=== PATIENT | female | born 1975 | race Asian ===

== ENCOUNTER 2016-09-04 08:23 | Day surgery (SDC) | payer OTHER ==
[2016-09-02 13:28] VITALS: BMI 20.1
[2016-09-04] MEDS ORDERED: KETOROLAC TROMETHAMINE 30 MG/1 ML VIAL IVPUSH PRN (13:08)
[2016-09-04] MEDS ORDERED: ONDANSETRON 4 MG/2 ML VIAL IVPB PRN (13:08)
[2016-09-04] MEDS ORDERED: DEXTROSE 5%-0.45% SALINE 1,000 ML IV SCH (13:15)
[2016-09-04] MEDS ORDERED: MIDAZOLAM HCL 2 MG/2 ML SINGLE DOSE VIAL ONE ×2 (13:19→13:26)
[2016-09-04] MEDS ORDERED: LIDOCAINE HCL 1%, 10 MG/ML (20ML VIAL) ONE (13:26)
[2016-09-04] MEDS ORDERED: DEXAMETHASONE SOD PHOSPHATE 4 MG/1 ML VIAL ONE (13:27)
[2016-09-04] MEDS ORDERED: ceFAZolin SODIUM 1 GM VIAL ONE (13:27)
[2016-09-04] MEDS ORDERED: LIDOCAINE HCL 2% (50ML VIAL) INF ONE (13:36)
[2016-09-04 16:57] VITALS: BP 110/62
[2016-09-04 17:19] VITALS: PULSE 71; TEMP 97.8
--- NOTE | 2016-09-05 10:18 | OP ---
DATE OF OPERATION: 09/04/2016 PREOPERATIVE DIAGNOSIS: Right breast ductal carcinoma in situ. POSTOPERATIVE DIAGNOSIS: Right breast ductal carcinoma in situ. PROCEDURE: Right breast wide excision with mammographic needle localization. ANESTHESIA: General laryngeal mask airway anesthesia. PRIMARY SURGEON: Bella Gomez MD DIRECTOR DRUG: CHRISTIANE Cifuentes COMPLICATIONS: None. Briefly, the patient is a 40-year-old premenopausal female of [place] descent. She has no family history of breast or ovarian cancer. The patient felt a slight density towards the periareolar right breast upper outer quadrant and underwent the mammography and ultrasound on July 23, 2016 showing a small 6-mm x 3-mm x 7-mm density in the right breast 10 o'clock region. An ultrasound-guided core biopsy performed on August 04, 2016 showed an intermediate grade DCIS, which was ER/[place] positive. She was seen in consultation and was sent for an MRI performed on August 25, 2016 showing no multifocal or contralateral disease. She underwent genetic testing and turned out to be negative for genetic panel testing but did have an VUS in the MAO and NBN genes. 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 The patient was brought in for the procedure on September 04, 2016. She underwent mammographic localization of the clip in question. DESCRIPTION OF PROCEDURE: She was then brought to the holding area. In the holding area, site verification was made, and informed consent was obtained was obtained. She was brought into the operating room and laid on the OR table in the supine position. Venodynes were placed on the lower extremities. She received a gram of Ancef prior to incision. The right breast was thoroughly prepped and draped in the usual fashion with the wire prepped in the field. No sentinel node biopsy was performed given the intraductal nature of this cancer. She underwent general laryngeal mask airway anesthesia. Then 1% lidocaine was given in a curvilinear fashion towards the periareolar border of the right breast. Incision was made on the right breast periareolar border in the upper outer quadrant. Dissection was undertaken around the needle localization, and the breast tissue was completely removed from around the wire with the wire in the middle of the specimen. The specimen was oriented with a long ladder short superior suture, and specimen radiographs showed removal of the clip in the middle of the specimen. Hemostasis was achieved. Separate margins were then taken on the superior, inferior, medial, lateral, deep, and anterior aspects with suture making the biopsy cavity side, and all margins were sent separately to Pathology. Hemostasis was achieved. A partial tissue transfer closure was then accomplished with about a 3-cm x 3-cm area of breast tissue brought into wound, and the breast tissue was reapproximated using 2-0 plain suture. The skin was closed using interrupted 3-0 deep dermal Vicryl suture and a running 4-0 subcuticular Biosyn suture. Mastisol and Steri-Strips were applied over the wound. A compressive dressing placed over this. Laryngeal mask airway tube was removed at the end of the case, and she was brought to the post anesthesia care unit in stable condition where she will be recovered and discharged home the same day once discharge criteria are met. All sponge and needle counts were correct at the end of the case. She will follow up in the office in 1 week for a formal wound pathology check. Estimated blood loss was minimal. BELLA GOMEZ M.D. [id number]
--- NOTE | 2016-09-08 14:41 | PATH ---
Surgical Pathology Report Patient Name: USHA SIMONS [facility]. Rec. #: [id number] /Age/Gender: 1975 (Age: 40) / F Account: [id number] Location: [facility] AMBULATORY Taken: 09/04/2016 Received: 09/04/2016 Reported: 09/08/2016 Physicians: Cam Gomez M.D. Specimen(s) Received A: RIGHT BREAST WIDE EXCISION B: RIGHT BREAST MEDIAL MARGIN C: RIGHT BREAST LATERAL MARGIN D: RIGHT BREAST DEEP MARGIN E: RIGHT BREAST ANTERIOR MARGIN F: RIGHT BREAST SUPERIOR MARGIN G: RIGHT BREAST INFERIOR MARGIN Clinical History DCIS Final Diagnosis A. RIGHT BREAST, WIDE EXCISION WITH WIRE LOCALIZATION: DUCTAL CARCINOMA IN SITU (DCIS), INTERMEDIATE NUCLEAR GRADE, CRIBRIFORM PATTERN WITH FOCAL AREA OF CENTRAL NECROSIS. DCIS INVOLVES AN INTRADUCTAL PAPILLOMA AND EXTENDS INTO SURROUNDING BREAST TISSUE. DCIS MEASURES UP TO 1.4 CM MEASURED ON THE SLIDE, AND IS PRESENT IN 5 OF 7 SUBMITTED BLOCKS. DCIS IS LESS THAN 1 MM FROM THE SUPERIOR AND LATERAL ASPECTS OF THE SPECIMEN AND 1 MM FROM THE INFERIOR AND DEEP ASPECTS OF THE SPECIMEN (SEE SPECIMENS B-G FOR FINAL MARGINS). CHANGES CONSISTENT WITH PRIOR BIOPSY SITE PRESENT. Immunohistochemical stains for SMM-HC on block A4 performed and interpreted at [facility] shows preservation of the myoepithelial cell layer, consistent with DCIS. B. RIGHT BREAST, MEDIAL MARGIN, EXCISION: BENIGN BREAST TISSUE. C. RIGHT BREAST, LATERAL MARGIN, EXCISION: BENIGN BREAST TISSUE. D. RIGHT BREAST, DEEP MARGIN, EXCISION: BENIGN FIBROFATTY TISSUE. E. RIGHT BREAST, ANTERIOR MARGIN, EXCISION: BENIGN BREAST TISSUE. F. RIGHT BREAST, SUPERIOR MARGIN, EXCISION: DUCTAL CARCINOMA IN SITU (DCIS), INTERMEDIATE NUCLEAR GRADE, CRIBRIFORM PATTERN. DCIS IS LESS THAN 1 MM FROM THE FINAL MARGIN. G. RIGHT BREAST, INFERIOR MARGIN, EXCISION: BENIGN BREAST TISSUE. Comment: Also see prior Slide Review [id number]. Comments DCIS of Breast: Surgical Pathology Cancer Case Summary Based on AJCC/UICC TNM, 7th edition Procedure _X__ Excision with image-guided localization Specimen Laterality _X__ Right Estimated size (extent) of DCIS (greatest dimension using gross and microscopic evaluation): at least 14 mm and: Number of blocks with DCIS: 5 Number of blocks examined: 7 Nuclear Grade _X__ Grade II (intermediate) Necrosis _X__ Present, central (expansive "comedo" necrosis) Microcalcifications _X__ Not identified Margins _X__ Margin(s) close to (< 1 mm) DCIS: SUPERIOR Pathologic Staging (pTNM) Primary Tumor (pT) _X__ pTis (DCIS): Ductal carcinoma in situ Biomarker Studies Results of ER and MS studies performed on block "A4" at [facility] are as follows: ER (clone [id number] mouse monoclonal antibody by [employer]): ~80% nuclear staining with moderate intensity (Positive). MS (clone16 mouse monoclonal antibody by [employer]) : ~80% nuclear staining with moderate intensity (Positive). Positive and negative controls (internal if applicable) show appropriate results. Formalin fixation and cold ischemic times are within current ASCO/CAP recommendations for ER, MS and Her2 testing. Electronically Signed Devin Acosta M.D. Gross Description A. Received in formalin, labeled "right breast wide excision," is a 3.6 x 1.8 x 1.7 cm. beckett-yellow, irregular, portion of fibroadipose tissue. There is a needle localization wire separately received within the same container which appears to have detached from the specimen. There is a short suture marking the superior aspect and a long suture marking the lateral aspect, per the surgeon. There is no skin or nipple present. The specimen is inked as follows: superior and lateral blue; inferior green; medial yellow; anterior red; deep black. The specimen is serially sectioned from lateral to medial. Sectioning reveals a 1.0 x 0.7 x 0.7 cm beckett, firm lesion at 0.3 cm from the inferior margin, 0.4 cm from the anterior margin and 0.4 cm from the deep margin. The remaining breast parenchyma displays abundant dense, white, focally firm fibrous tissue. The specimen is entirely and sequentially submitted in 7 cassettes with the lateral margin in cassette 1, the medial margin in cassette 7 and the lesion in cassettes 2-4. Time to formalin fixation: 5 minutes Total formalin fixation time: Approximately 28 hours. B. Received in formalin labeled "right breast medial margin," is a 1.0 x 0.6 x 0.4 cm irregular portion of fibroadipose tissue with a suture marking the biopsy cavity side, per the surgeon. The new margin is inked green and the specimen is serially sectioned. The specimen is entirely submitted in one cassette. C. Received in formalin labeled "right breast lateral margin," is a 1.5 x 0.9 x 0.5 cm irregular portion of fibroadipose tissue with a suture marking the biopsy cavity side, per the surgeon. The new margin is inked green and the specimen is serially sectioned. The specimen is entirely submitted in 2 cassettes. D. Received in formalin labeled "right breast deep margin," is a 1.1 x 0.7 x 0.2 cm irregular portion of fibroadipose tissue with a suture marking the biopsy cavity side, per the surgeon. The new margin is inked green and the specimen is serially sectioned. The specimen is entirely submitted in one cassette. E. Received in formalin labeled "right breast anterior margin," is a 1.3 x 1.2 x 0.5 cm irregular portion of fibroadipose tissue with a suture marking the biopsy cavity side, per the surgeon. The new margin is inked green and the specimen is serially sectioned. The specimen is entirely submitted in 2 cassettes. F. Received in formalin labeled "right breast superior margin," is a 1.4 x 1.0 x 0.5 cm irregular portion of fibroadipose tissue with a suture marking the biopsy cavity side, per the surgeon. The new margin is inked green and the specimen is serially sectioned. The specimen is entirely submitted in one cassette. G. Received in formalin labeled "right breast inferior margin," is a 1.4 x 0.9 x 0.3 cm irregular portion of fibroadipose tissue with a suture marking the biopsy cavity side, per the surgeon. The new margin is inked green and the specimen is serially sectioned. The specimen is entirely submitted in one cassette. 09/05/2016 saudi09/05/2016
== END 2016-09-04 15:30 | disposition home or self-care (01) ==
LOC: FASU 08:23
PROVIDERS: ATTEND Surgery Surgical Oncology
PROC: 0HBT0ZZ Excision of Right Breast, Open Approach (ICD-10-PCS; principal; 2016-09-04 12:30)
PROC: 0JX60ZB Transfer Chest Subcutaneous Tissue and Fascia with Skin and Subcutaneous Tissue, Open Approach (ICD-10-PCS; 2016-09-04 12:30)
DX: D05.11 Intraductal carcinoma in situ of right breast (principal)
CPT/HCPCS: 19281; 84703; 88307-TC; 88342-TC; 94760

== ENCOUNTER 2016-09-23 10:48 | Day surgery (SDC) | payer OTHER ==
[2016-09-16 15:39] VITALS: BMI 20.1
--- NOTE | 2016-09-17 11:38 | HP ---
Admitting History and Physical - Primary Care Physician PCP: Cam Gomez - Admission Chief Complaint: right breast cancer History of Present Illness: Patient is a 41 yo patient s/p right breast wide excision on 09/04/2016 and was noted to have positive superior margin. Patient is now presenting for right breast WE. History Source: Patient Limitations to Obtaining History: No Limitations - Past Medical History Renal/: Yes: Other (H/O pyelonephritis 2007) ...LMP: 08/19/16 Dermatology: Yes: Other (Benign polyp left nostril excised) - Past Surgical History Past Surgical History: Yes: Breast Biopsy (right breast WE 09/04/2016) - Smoking History Smoking history: Former smoker Have you smoked in the past 12 months: No If you are a former smoker, when did you quit?: MORE THAN 10 YEARS AGO - Alcohol/Substance Use Hx Alcohol Use: Yes (RARELY) Home Medications - Allergies Allergies/Adverse Reactions: Allergies Allergy/AdvReac Type Severity Reaction Status Date / Time mercury (elemental) Allergy Intermediate Rash Verified 09/02/16 13:15 - Home Medications Home Medications: Ambulatory Orders NK [No Known Home Medication] 09/16/16 Family Disease History - Family Disease History Family Disease History: CA: Grandparent (pat GF esophageal ca /Pat GM CRC 65), Father (lymphoma 68) Review of Systems - Review of Systems Constitutional: reports: No Symptoms Cardiovascular: reports: No Symptoms Physical Examination Constitutional: Yes: Well Nourished Breast(s): Yes: Right (right breast wide excision with steristrips in place. No discharge and erythema noted.) Wound/Incision: Yes: Clean/Dry Problem List - Problems (1) Ductal carcinoma in situ (DCIS) of right breast Assessment/Plan: right breast reexcision of positive margins Code(s): D05.11 - INTRADUCTAL CARCINOMA IN SITU OF RIGHT BREAST
[2016-09-23] MEDS ORDERED: ONDANSETRON 4 MG/2 ML VIAL IVPB PRN (13:09)
[2016-09-23] MEDS ORDERED: KETOROLAC TROMETHAMINE 30 MG/1 ML VIAL IVPUSH PRN (13:09)
[2016-09-23] MEDS ORDERED: DEXTROSE 5%-0.45% SALINE 1,000 ML IV SCH (13:15)
[2016-09-23] MEDS ORDERED: MIDAZOLAM HCL 2 MG/2 ML SINGLE DOSE VIAL ONE (13:21)
[2016-09-23] MEDS ORDERED: PROPOFOL 20 ML ONE (13:21)
[2016-09-23] MEDS ORDERED: SUCCINYLCHOLINE CHLORIDE 200 MG/10 ML VIAL ONE (13:22)
[2016-09-23] MEDS ORDERED: ONDANSETRON 4 MG/2 ML VIAL ONE (13:25)
[2016-09-23] MEDS ORDERED: DEXAMETHASONE SOD PHOSPHATE 4 MG/1 ML VIAL ONE (13:25)
[2016-09-23] MEDS ORDERED: LIDOCAINE HCL/PF 2% SDV 5ML VIAL ONE (13:25)
[2016-09-23] MEDS ORDERED: KETOROLAC TROMETHAMINE 30 MG/1 ML VIAL ONE ×2 (13:32→13:59)
[2016-09-23] MEDS ORDERED: ceFAZolin SODIUM 1 GM VIAL ONE (13:45)
[2016-09-23] MEDS ORDERED: LIDOCAINE HCL 1%, 10 MG/ML (50 mL VIAL) IJ ONE (14:04)
[2016-09-23] MEDS ORDERED: PROMETHAZINE HCL 25 MG/1 ML VIAL IVPUSH PRN (14:28)
[2016-09-23] MEDS ORDERED: oxyCODONE HCL 5 MG TABLET PO PRN (14:28)
[2016-09-23] MEDS ORDERED: LACTATED RINGERS SOLUTION 1,000 ML IV SCH (14:30)
[2016-09-23 15:40] VITALS: TEMP 97.5
[2016-09-23 16:16] VITALS: BP 107/67; PULSE 60
--- NOTE | 2016-09-24 08:31 | OP ---
DATE OF OPERATION: 09/23/2016 PREOPERATIVE DIAGNOSIS: Right breast ductal carcinoma in situ with positive margins. POSTOPERATIVE DIAGNOSIS: Right breast ductal carcinoma in situ with positive margins. PROCEDURE: Re-excision of a right superior margin. ANESTHESIA: General laryngeal mask airway anesthesia. PRIMARY SURGEON: Bella Gomez MD SKIN CARE TECHNICIAN: CHRISTIANE Hussein COMPLICATIONS: There were no complications. INDICATIONS: Briefly, the patient is a 41-year-old postmenopausal female of Citizen Of [place] descent. She has no family history of breast or ovarian cancer, but there is lymphoma, esophageal cancer, colorectal cancer, and liver cancer in the paternal side of her family. The patient felt a mass towards the right breast periareolar region, and underwent a mammography and ultrasound, showing a 6 x 3 x 1 mm density, and underwent a core biopsy on August 04, 2016, showing intermediate grade DCIS, which was ER/SC positive. She underwent a wide excision of this region on September 04, 2016, again showing intermediate grade DCIS measuring about 1.4 cm, but the superior margin was less than 1 mm, and re-excision was recommended. DESCRIPTION OF PROCEDURE: The patient was brought in for ambulatory surgery on September 23, 2016, for re-excision of the superior margin. In the holding area, site verification was made and informed consent was obtained. She was brought into the operating room and laid on the OR table in the supine position. Venodynes were placed on the lower extremities. She received 1 g of Ancef prior to incision. She was given general laryngeal mask airway anesthesia. The right breast was sterilely prepped and draped in the usual fashion. The previous right breast periareolar incision was reopened and dissection was undertaken, and a separate margin was taken on the superior border of the biopsy cavity. Suture was used to erin the biopsy cavity side. Hemostasis was achieved, and the wound was copiously irrigated. The breast tissue was then reapproximated using 2-0 plain suture. The skin was closed using interrupted 3-0 deep dermal Vicryl suture and a running 4-0 subcuticular Biosyn suture. Mastisol and Steri-Strips were applied over the wound with a compressive dressing placed over this. The patient tolerated the procedure well without difficulty, and the laryngeal mask airway tube was removed at the end of the case. We did instill about 5 mL of 0.25% Marcaine in the wound prior to closure. The patient will be recovered in the recovery room and discharged home the same day once discharge criteria are met. She is to follow up in the office in 1 week for formal wound pathology check. All sponge and needle counts were correct at the end of the case, and estimated blood loss was minimal. BELLA GOMEZ M.D. [id number]
--- NOTE | 2016-09-25 11:09 | PATH ---
Surgical Pathology Report Patient Name: USHA SIMONS [facility]. Rec. #: [id number] /Age/Gender: 1975 (Age: 41) / F Account: [id number] Location: [facility] AMBULATORY Taken: 09/23/2016 Received: 09/23/2016 Reported: 09/25/2016 Physicians: Cam Gomez M.D. Specimen(s) Received RIGHT BREAST SUPERIOR MARGIN Clinical History None Provided Final Diagnosis RIGHT BREAST, SUPERIOR MARGIN, EXCISION: DUCTAL CARCINOMA IN SITU (DCIS), INTERMEDIATE NUCLEAR GRADE, WITH FOCAL CENTRAL NECROSIS. DCIS IS 4 MM FROM FINAL MARGIN OF EXCISION. CHANGES CONSISTENT WITH PRIOR EXCISION SITE PRESENT. Comment: Also see prior specimen [id number]. Electronically Signed Devin Acosta M.D. Gross Description Received in formalin labeled "superior margin," is a 1.8 x 1.1 x 0.7 cm irregular portion of fibroadipose tissue with a suture marking the biopsy cavity side, per the surgeon. The new margin is inked green and the specimen is serially sectioned. The specimen is entirely submitted in 2 cassettes. /09/24/2016 saudi09/24/2016
== END 2016-09-23 16:20 | disposition home or self-care (01) ==
LOC: FASU 10:48
PROVIDERS: ATTEND Surgery Surgical Oncology
PROC: 0HBT0ZX Excision of Right Breast, Open Approach, Diagnostic (ICD-10-PCS; principal; 2016-09-23 13:46)
DX: D05.11 Intraductal carcinoma in situ of right breast (principal); Z87.891 Personal history of nicotine dependence
CPT/HCPCS: 84703; 88307-TC; 94760